=== PATIENT | male | born 1985 | race Caucasian/White ===

== ENCOUNTER 2018-03-30 04:35 | Emergency (ER) | payer OTHER ==
[~2018-03-30] VITALS: Ht 175.3 cm; Wt 77.1 kg
[2018-03-30 04:41] VITALS: BP 136/90
[2018-03-30] MEDS ORDERED: KETOROLAC 60 MG/2 ML VIAL IM ONE (05:05)
[2018-03-30] MEDS ORDERED: MORPHINE SULFATE 4 MG/ML SYR IM ONE (05:40)
[2018-03-30 06:40] VITALS: BP 105/63
== END 2018-03-30 06:40 | disposition home or self-care (01) ==
LOC: MED 04:35
DX: K64.9 Unspecified hemorrhoids (principal); E07.9 Disorder of thyroid, unspecified; Z98.890 Other specified postprocedural states
CPT/HCPCS: 96372; 99283; J1885; J2270

== ENCOUNTER 2018-03-30 07:22 | Emergency (ER) | payer SELFPAY ==
[~2018-03-30] VITALS: Ht 177.8 cm; Wt 72.6 kg
[2018-03-30 07:28] VITALS: BP 126/78
[2018-03-30] MEDS ORDERED: KETOROLAC 30 MG/ML VIAL IM ONE (07:40)
--- NOTE | 2018-03-30 08:03 | NUR ---
32 yo male bib self for abdominal pain seen here earlier for pain in his rectum. states pain come on suddenly and feels like a burning cramping pain in his bilateral upper abd. DENIES N/V/D; SKIN IS PINK/WARM/DRY; AAOX4 WITH EVEN AND STEADY GAIT; LUNGS CLEAR BL; HR EVEN AND REGULAR; PT DENIES ANY FEVER, CP, SOB, OR COUGH AT THIS TIME; PATIENT STATES PAIN OF 10/10 AT THIS TIME; VSS; PATIENT POSITIONED FOR COMFORT; HOB ELEVATED; BEDRAILS UP X2; BED DOWN. ER MD MADE AWARE OF PT STATUS.
--- NOTE | 2018-03-30 08:05 | NUR ---
returned from ct
--- NOTE | 2018-03-30 08:11 | NUR ---
Patient states pain currently +3/10 after Toradol given IM
--- NOTE | 2018-03-30 09:12 | NUR ---
DR HANNA AT BEDSIDE.
[2018-03-30 09:54] VITALS: BP 120/80
--- NOTE | 2018-03-30 09:54 | NUR ---
Patient discharged with v/s stable. Written and verbal after care instructions given and explained. Patient alert, oriented and verbalized understanding of instructions. Ambulatory with steady gait. All questions addressed prior to discharge. ID band removed. Patient advised to follow up with PMD. Rx of GNP GLYCERIN ADULT RECTAL SUPPOSITORY, LIDOCAINE HYDROCHLORIDE TOPICAL JELLY, MAGNESIUM CITRATE, GOLYTELY given. Patient educated on indication of medication including possible reaction and side effects. Opportunity to ask questions provided and answered.
== END 2018-03-30 09:54 | disposition home or self-care (01) ==
LOC: MED 07:22
DX: K59.00 Constipation, unspecified (principal); K64.4 Residual hemorrhoidal skin tags; E07.9 Disorder of thyroid, unspecified; F41.9 Anxiety disorder, unspecified
CPT/HCPCS: 74176; 96372; 99284; J1885

== ENCOUNTER 2023-05-02 06:49 | Emergency (ER) | payer BC, OTHER ==
[~2023-05-02] VITALS: Ht 175.3 cm; Wt 77.1 kg
[2023-05-02 06:50] VITALS: BP 120/73; PULSE 90; RESP 16; TEMP 97.7; O2SAT 99
[2023-05-02] MEDS: LORazepam 1 MG TAB PO ONE (07:22)
[2023-05-02 08:50] VITALS: BP 120/73; PULSE 90; RESP 16; TEMP 97.7; O2SAT 99
== END 2023-05-02 08:50 | disposition home or self-care (01) ==
LOC: MED 06:49
DX: F41.0 Panic disorder [episodic paroxysmal anxiety] (principal); E03.9 Hypothyroidism, unspecified; Z79.899 Other long term (current) drug therapy
CPT/HCPCS: 71045; 93005; 99283